=== PATIENT | male | born 1980 | race Two or more races ===

== ENCOUNTER 2024-02-07 15:18 | Emergency (ER) | payer OTHER ==
[~2024-02-07] VITALS: Ht 182.9 cm; Wt 104.3 kg
[2024-02-07 16:25] VITALS: BP 137/96; O2SAT 99
[2024-02-07] MEDS ORDERED: MECLIZINE HCL 25 MG TABLET PO ONE ×2 (19:15→19:20)
[2024-02-07] MEDS ORDERED: CLARITIN10 MG PO (20:44)
[2024-02-07] MEDS ORDERED: MECLIZINE HCL50 MG PO (20:44)
== END 2024-02-07 20:54 | disposition home or self-care (01) ==
LOC: ER 15:20
DX: H81.13 Benign paroxysmal vertigo, bilateral (principal); E16.2 Hypoglycemia, unspecified; J31.0 Chronic rhinitis; Z88.2 Allergy status to sulfonamides; Z91.010 Allergy to peanuts